=== PATIENT | female | born 1995 | race Caucasian/White ===

== ENCOUNTER 2017-10-01 20:45 | Emergency (ER) | payer MEDICAID, OTHER ==
[~2017-10-01] VITALS: Ht 152.4 cm; Wt 58.1 kg
[2017-10-01 21:28] VITALS: BP 126/76
--- NOTE | 2017-10-01 21:33 | NUR ---
TO LOBBY AMB, VSS, A/W FOR BED , BENITO NOTED
--- NOTE | 2017-10-02 02:15 | NUR ---
PATIENT CALLED TO PUT ON BED, NO ANSWER
--- NOTE | 2017-10-02 02:25 | NUR ---
CALLED FOR THE SECOND TIME NO RESPONSE
--- NOTE | 2017-10-02 02:35 | NUR ---
CALLED FOR THE THIRD TIME NO RESPONSE,PATIENT LEFT WITHOUT BEING SEEN BY DR. ZELAYA. NO FURTHER CARE PROVIDED FOR PATIENT.
== END 2017-10-02 02:35 | disposition left against medical advice (07) ==
LOC: MED 20:45
DX: R10.9 Unspecified abdominal pain (principal); Z53.21 Procedure and treatment not carried out due to patient leaving prior to being seen by health care provider